=== PATIENT | male | born 1940 | race Caucasian/White ===

== ENCOUNTER 2017-10-04 11:24 | Inpatient (IN) | payer MEDICARE ==
[~2017-10-04] VITALS: Ht 182.9 cm; Wt 73.4 kg
--- NOTE | ~2017-10-04 | EC ---
PATIENT:HERBERT MERINO DATE OF SERVICE: 10/04/17 SEX: M MEDICAL RECORD: [id number] DATE OF : 42 LOCATION:[facility] AGE OF PATIENT: 77 ADMISSION DATE: 10/04/17 REFERRING PHYSICIAN: INTERPRETING PHYSICIAN: ADIEL JOHNSON MD ECHOCARDIOGRAM REPORT ECHO CHARGES 4 ECHO COMPLETE CLINICAL DIAGNOSIS: BRADYCARDIA ECHOCARDIOGRAPHIC MEASUREMENTS (adult normal given) AC root (d.<3.7cm) 3.7 cm LV Septum d (<1.2 cm> 1.3 cm Valve Excursion 2.1 cm LV Septum (systole) 1.7 cm Left Atria (s.<4.0cm> 4.0 cm LVPW d(<1.2cm) 1.3 cm RV (d.<2.3cm) 5.4 cm LVPW (sytole) 1.8 cm LV diastole(<5.6CM) 5.6 cm MV E-F(>70mm/sec) cm LV systole 3.3 cm LVOT Diameter 1.9 cm MV exc.(>10mm) 1.3 cm Est.ejection fraction (50-75%) % Pericardial Effusion N DOPPLER: LVIT cm/sec A 75.0 cm/sec E 97.0 cm/sec LA cm/sec RVSP 48 mmHg LVOT 119 cm/sec AOP1/2T m/s Asc. Ao 146 cm/sec RVOT cm/sec RA cm/sec PA cm/sec AV Gradient Peak 8.49 mmHg AV Mean 4.32 mmHg AV Area 2.3 cm MV Gradient Peak 7.74 mmHg MV Mean 2.05 mmHg MV Area cm COMMENTS: Transverse Abdominal Muscle Nurse: 2 JOSH DECKER Probation Agent: 4 Dr. Johnson TAPE# PACS DATE OF SERVICE: 10/09/2017 PROCEDURE: Transthoracic echocardiogram. FINDINGS: 1. The patient has mild left ventricular hypertrophy with inflow characteristics that are otherwise normal. There are no regional wall motion abnormalities. The ejection fraction is 65% to 70%. 2. The left atrium shows mild left atrial enlargement. 3. The aortic valve has sclerosis without significant stenosis or ECHOCARDIOGRAM REPORT [id number] HERBERT MERINO regurgitation. 4. The mitral valve is structurally normal without significant mitral regurgitation. 5. The tricuspid valve has mild to moderate tricuspid regurgitation. The RVP is elevated with an estimated PA pressure of 48 mmHg indicating moderate pulmonary hypertension. 6. The right atrium is severely dilated. 7. The right ventricle is moderately dilated. TRANSINT:[id number] Voice Confirmation ID: [id number] DOCUMENT ID: [id number] 10/11/2017 Edited to correct date of service, dmm. ADIEL JOHNSON MD CC: [id number] DICTATION DATE: 10/10/17918 MOBILE APPLICATION TESTER: 10/10/17 1228 DIS IN 10/10/17 [id number] [place] [address]
[2017-10-04 12:29] LABS: INR 1.1 (0.85-1.17); PROTIME 13.8 SECONDS (11.6-15.0)
[2017-10-04 12:37] LABS: HEMOGLOBIN 14.3 g/dL (13.5-17.5); MCH 31.2 pg (26.0-34.0); MCV 91.7 fL (80.0-100.0); RBC 4.58 10x6/uL (4.20-6.10); RDW 13.6 % (11.5-14.5); WBC 5.3 10x3/uL (4.8-10.8)
[2017-10-04 12:43] LABS: PLATELET COUNT 2 10x3/uL (130-400)
[2017-10-04 12:50] LABS: LYMPHOCYTES 34 % (15-50); MONOCYTES 7 % (2-11); NEUTROPHILS 57 % (40-80); PLATELET ESTIMATE DECREASED
[2017-10-04 12:55] LABS: ANION GAP 12.5 mmol/L (8-16); BILIRUBIN - TOTAL 0.44 mg/dL (0.2-1.3); CALCIUM 8.8 mg/dL (8.5-10.1); CARBON DIOXIDE 27.3 mmol/L (21.0-32.0); CREATININE - SERUM 1.1 mg/dL (0.6-1.3); POTASSIUM - SERUM 4.8 mmol/L (3.5-5.1); PROTEIN - SERUM 6.4 g/dL (6.4-8.2)
[2017-10-04 17:55] VITALS: BMI 22.1
[2017-10-04 19:33] LABS: APTT 30.6 SECONDS (22.8-39.4); INR 1.2 (0.85-1.17); PROTIME 14.8 SECONDS (11.6-15.0)
[2017-10-04 22:44] VITALS: BP 102/50
[2017-10-05] VITALS (9 sets, daily range): BP systolic 87–107; BP diastolic 34–65; Ht 182.9 cm; Wt 73.4 kg
[2017-10-05 05:21] LABS: BASOPHILS 0 % (0-2); EOSINOPHILS 0 % (0-7); IMMATURE GRANULOCYTES 0.2 % (0-5); LYMPHOCYTES 13.8 % (15-50); MCH 30.8 pg (26.0-34.0); MCHC 33.6 g/dL (31.0-37.0); MCV 91.5 fL (80.0-100.0); MONOCYTES 2.5 % (2-11); NEUTROPHILS 83.5 % (40-80); RDW 13.8 % (11.5-14.5); WBC 4.8 10x3/uL (4.8-10.8)
[2017-10-05 05:22] LABS: HEMATOCRIT 32.1 % (42.0-54.0); HEMOGLOBIN 10.8 g/dL (13.5-17.5); RBC 3.51 10x6/uL (4.20-6.10)
[2017-10-05 05:29] LABS: PLATELET COUNT 12 10x3/uL (130-400)
[2017-10-05 05:50] LABS: ALBUMIN 2.8 g/dL (3.4-5.0); ALKALINE PHOSPHATASE 52 U/L (46-116); ALT (SGPT) 23 U/L (10-68); BILIRUBIN - TOTAL 0.49 mg/dL (0.2-1.3); CALC OSMOLALITY 303 mosm/kg (275-300); CALCIUM 8.5 mg/dL (8.5-10.1); CARBON DIOXIDE 22.6 mmol/L (21.0-32.0); CHLORIDE - SERUM 113 mmol/L (98-107); CREATININE - SERUM 0.9 mg/dL (0.6-1.3); GLUCOSE 155 mg/dL (74-106); POTASSIUM - SERUM 4.1 mmol/L (3.5-5.1); PROTEIN - SERUM 5.8 g/dL (6.4-8.2); SODIUM 144 mmol/L (136-145); UREA NITROGEN 51 mg/dL (7-18); eGFR NON AFRICAN AMERICAN 87 mL/min (90-120)
[2017-10-05 19:03] LABS: BASOPHILS 0.3 % (0-2); EOSINOPHILS 0.3 % (0-7); HEMATOCRIT 25.8 % (42.0-54.0); IMMATURE GRANULOCYTES 0.9 % (0-5); LYMPHOCYTES 17.7 % (15-50); MCH 30.1 pg (26.0-34.0); MCHC 33.3 g/dL (31.0-37.0); MCV 90.2 fL (80.0-100.0); MONOCYTES 6.4 % (2-11); NEUTROPHILS 74.4 % (40-80); RBC 2.86 10x6/uL (4.20-6.10); RDW 13.8 % (11.5-14.5)
[2017-10-05 19:23] LABS: HEMOGLOBIN 8.6 g/dL (13.5-17.5); WBC 3.3 10x3/uL (4.8-10.8)
[2017-10-05 19:25] LABS: PLATELET COUNT 8 10x3/uL (130-400)
[2017-10-06] VITALS (17 sets, daily range): BP systolic 87–108; BP diastolic 28–69
[2017-10-06 08:05] LABS: BASOPHILS 0 % (0-2); EOSINOPHILS 0 % (0-7); HEMATOCRIT 24.6 % (42.0-54.0); HEMOGLOBIN 8.3 g/dL (13.5-17.5); IMMATURE GRANULOCYTES 0.1 % (0-5); LYMPHOCYTES 9.3 % (15-50); MCH 30.5 pg (26.0-34.0); MCHC 33.7 g/dL (31.0-37.0); MCV 90.4 fL (80.0-100.0); MONOCYTES 8.6 % (2-11); RBC 2.72 10x6/uL (4.20-6.10); RDW 13.9 % (11.5-14.5)
[2017-10-06 08:19] LABS: ALBUMIN 2.4 g/dL (3.4-5.0); ALKALINE PHOSPHATASE 41 U/L (46-116); ALT (SGPT) 23 U/L (10-68); BILIRUBIN - TOTAL 0.44 mg/dL (0.2-1.3); CALCIUM 8.5 mg/dL (8.5-10.1); CARBON DIOXIDE 22.5 mmol/L (21.0-32.0); CREATININE - SERUM 0.9 mg/dL (0.6-1.3); GLUCOSE 143 mg/dL (74-106); POTASSIUM - SERUM 4.1 mmol/L (3.5-5.1); PROTEIN - SERUM 5.3 g/dL (6.4-8.2); SODIUM 148 mmol/L (136-145); eGFR NON AFRICAN AMERICAN 87 mL/min (90-120)
[2017-10-06 08:25] LABS: CALC OSMOLALITY 301 mosm/kg (275-300); UREA NITROGEN 30 mg/dL (7-18)
[2017-10-06 08:26] LABS: WBC 6.9 10x3/uL (4.8-10.8)
[2017-10-06 08:27] LABS: CHLORIDE - SERUM 116 mmol/L (98-107)
[2017-10-06 08:28] LABS: PLATELET COUNT 12 10x3/uL (130-400)
[2017-10-07] VITALS (8 sets, daily range): BP systolic 100–126; BP diastolic 49–75
[2017-10-07 01:10] LABS: APPEARANCE CLEAR (CLEAR); BILIRUBIN NEGATIVE (NEGATIVE); COLOR YELLOW (YELLOW); GLUCOSE 250 mg/dL (NEGATIVE); KETONE NEGATIVE (NEGATIVE); NITRITE NEGATIVE (NEGATIVE); PROTEIN NEGATIVE (NEGATIVE); SPECIFIC GRAVITY 1.015 (1.005-1.020); UROBILINOGEN NORMAL (NORMAL)
[2017-10-07 06:55] LABS: ALBUMIN 2.5 g/dL (3.4-5.0); ALKALINE PHOSPHATASE 45 U/L (46-116); ALT (SGPT) 66 U/L (10-68); CALC OSMOLALITY 295 mosm/kg (275-300); CALCIUM 8.4 mg/dL (8.5-10.1); CARBON DIOXIDE 23.8 mmol/L (21.0-32.0); CHLORIDE - SERUM 114 mmol/L (98-107); GLUCOSE 155 mg/dL (74-106); PROTEIN - SERUM 5.6 g/dL (6.4-8.2); SODIUM 144 mmol/L (136-145); UREA NITROGEN 29 mg/dL (7-18); eGFR NON AFRICAN AMERICAN 77 mL/min (90-120)
[2017-10-07 07:13] LABS: BASOPHILS 0 % (0-2); EOSINOPHILS 0 % (0-7); HEMATOCRIT 25.9 % (42.0-54.0); HEMOGLOBIN 8.6 g/dL (13.5-17.5); IMMATURE GRANULOCYTES 0.3 % (0-5); LYMPHOCYTES 5.7 % (15-50); MCH 30.3 pg (26.0-34.0); MCHC 33.2 g/dL (31.0-37.0); MCV 91.2 fL (80.0-100.0); MONOCYTES 8.8 % (2-11); NEUTROPHILS 85.2 % (40-80); RBC 2.84 10x6/uL (4.20-6.10); RDW 14.7 % (11.5-14.5); WBC 5.8 10x3/uL (4.8-10.8)
[2017-10-07 07:19] LABS: PLATELET COUNT 7 10x3/uL (130-400)
[2017-10-07 10:32] LABS: BILIRUBIN - DIRECT 0.22 mg/dL (0.00-0.30)
[2017-10-07 11:29] LABS: BILIRUBIN - INDIRECT 0.54 mg/dL (0.00-1.00); BILIRUBIN - TOTAL 0.76 mg/dL (0.2-1.3)
[2017-10-08] VITALS: BP 103/53
[2017-10-08 04:00] VITALS: BP 122/64
[2017-10-08 05:14] LABS: BASOPHILS 0 % (0-2); EOSINOPHILS 0 % (0-7); HEMATOCRIT 26.8 % (42.0-54.0); HEMOGLOBIN 8.9 g/dL (13.5-17.5); IMMATURE GRANULOCYTES 0.4 % (0-5); LYMPHOCYTES 5.7 % (15-50); MCH 30.3 pg (26.0-34.0); MCHC 33.2 g/dL (31.0-37.0); MCV 91.2 fL (80.0-100.0); MONOCYTES 10.4 % (2-11); NEUTROPHILS 83.5 % (40-80); RBC 2.94 10x6/uL (4.20-6.10); RDW 15.1 % (11.5-14.5); WBC 5.1 10x3/uL (4.8-10.8)
[2017-10-08 05:29] LABS: PLATELET COUNT 15 10x3/uL (130-400)
[2017-10-08 05:45] LABS: ALBUMIN 2.5 g/dL (3.4-5.0); ALKALINE PHOSPHATASE 53 U/L (46-116); BILIRUBIN - TOTAL 0.45 mg/dL (0.2-1.3); CALC OSMOLALITY 298 mosm/kg (275-300); CALCIUM 8.7 mg/dL (8.5-10.1); CARBON DIOXIDE 25.9 mmol/L (21.0-32.0); CHLORIDE - SERUM 112 mmol/L (98-107); CREATININE - SERUM 0.9 mg/dL (0.6-1.3); GLUCOSE 153 mg/dL (74-106); POTASSIUM - SERUM 4.1 mmol/L (3.5-5.1); PROTEIN - SERUM 6.2 g/dL (6.4-8.2); SODIUM 146 mmol/L (136-145); UREA NITROGEN 26 mg/dL (7-18); eGFR NON AFRICAN AMERICAN 87 mL/min (90-120)
[2017-10-08 05:47] LABS: ALT (SGPT) 88 U/L (10-68)
[2017-10-08 09:26] VITALS: BP 137/79
[2017-10-08 12:44] VITALS: BP 117/59
[2017-10-08 16:45] VITALS: BP 133/67
[2017-10-08 20:00] VITALS: BP 112/57
[2017-10-09] VITALS (11 sets, daily range): BP systolic 108–131; BP diastolic 50–81
[2017-10-09 05:07] LABS: ALBUMIN 2.3 g/dL (3.4-5.0); ALKALINE PHOSPHATASE 59 U/L (46-116); ALT (SGPT) 90 U/L (10-68); CALC OSMOLALITY 293 mosm/kg (275-300); CALCIUM 8.3 mg/dL (8.5-10.1); CARBON DIOXIDE 28.8 mmol/L (21.0-32.0); CHLORIDE - SERUM 109 mmol/L (98-107); GLUCOSE 163 mg/dL (74-106); PROTEIN - SERUM 6.3 g/dL (6.4-8.2); SODIUM 143 mmol/L (136-145); UREA NITROGEN 26 mg/dL (7-18); eGFR NON AFRICAN AMERICAN 77 mL/min (90-120)
[2017-10-09 05:12] LABS: BASOPHILS 0 % (0-2); EOSINOPHILS 0 % (0-7); HEMOGLOBIN 8.8 g/dL (13.5-17.5); IMMATURE GRANULOCYTES 0.5 % (0-5); LYMPHOCYTES 7.6 % (15-50); MCHC 32.6 g/dL (31.0-37.0); MCV 92.2 fL (80.0-100.0); MONOCYTES 12.7 % (2-11); NEUTROPHILS 79.2 % (40-80); RBC 2.93 10x6/uL (4.20-6.10); RDW 15.4 % (11.5-14.5); WBC 4.1 10x3/uL (4.8-10.8)
[2017-10-09 05:15] LABS: PLATELET COUNT 31 10x3/uL (130-400)
[2017-10-09 11:08] LABS: INR 1.18 (0.85-1.17); PROTIME 14.6 SECONDS (11.6-15.0)
[2017-10-10 04:00] VITALS: BP 120/65
[2017-10-10 07:16] LABS: % SATURATION 6 % (15-55); IRON 19 ug/dl (35-150); TOTAL IRON BIND CAPACITY 298 ug/dl (260-445); UNSAT IRON BIND CAPACITY 279 ug/dl (150-375)
[2017-10-10 09:07] LABS: BASOPHILS 0 % (0-2); EOSINOPHILS 0 % (0-7); HEMATOCRIT 27.3 % (42.0-54.0); HEMOGLOBIN 9.1 g/dL (13.5-17.5); IMMATURE GRANULOCYTES 0.2 % (0-5); LYMPHOCYTES 6.9 % (15-50); MCH 30.4 pg (26.0-34.0); MCHC 33.3 g/dL (31.0-37.0); MCV 91.3 fL (80.0-100.0); MONOCYTES 7.8 % (2-11); NEUTROPHILS 85.1 % (40-80); RBC 2.99 10x6/uL (4.20-6.10); RDW 15.3 % (11.5-14.5); WBC 4.1 10x3/uL (4.8-10.8)
[2017-10-10 09:14] LABS: PLATELET COUNT 44 10x3/uL (130-400)
[2017-10-10 09:40] VITALS: BP 130/88
[2017-10-10 11:48] VITALS: BP 119/54
[2017-10-10] MEDS ORDERED: PROTONIX40 MG PO (13:49)
[2017-10-10] MEDS ORDERED: NICODERM C1 PATCH .3 TRANSDERM (13:49)
[2017-10-10] MEDS ORDERED: PREDNISONE10 MG PO (13:51)
== END 2017-10-10 16:30 | disposition home or self-care (01) | DRG 813 ==
LOC: D.ER 11:24 → D.MS 16:57
PROVIDERS: Emergency Medicine; Family Medicine; General Practice; Internal Medicine Hematology & Oncology; Physician Assistant
PROC: 07DR3ZX Extraction of Iliac Bone Marrow, Percutaneous Approach, Diagnostic (ICD-10-PCS; principal; 2017-10-09 13:30)
DX: D69.3 Immune thrombocytopenic purpura (principal); F17.203 Nicotine dependence unspecified, with withdrawal; D62 Acute posthemorrhagic anemia; I71.4 Abdominal aortic aneurysm, without rupture; R04.0 Epistaxis; R00.1 Bradycardia, unspecified; I95.9 Hypotension, unspecified